=== PATIENT | male | born 1935 | race African-American/Black ===

== ENCOUNTER 2021-10-22 14:38 | Outpatient (CLI) | payer BC, SELFPAY ==
[~2021-10-22] VITALS: Ht 185.4 cm; Wt 90.3 kg
[2021-10-26] MEDS ORDERED: CEFAZOLIN SOD 1 GM in D5W 50 ML IV ONE (07:00)
== END 2021-10-22 16:00 | disposition home or self-care (01) ==
LOC: SLB 14:38 → SDS 10-26 05:59 → EDSTATUS 11-23 07:30
PROVIDERS: ATTEND Colon & Rectal Surgery
DX: Z01.812 Encounter for preprocedural laboratory examination (principal); K40.30 Unilateral inguinal hernia, with obstruction, without gangrene, not specified as recurrent
CPT/HCPCS: J0690; J7060; U0003